=== PATIENT | female | born 1965 | race Caucasian/White ===

== ENCOUNTER → 2018-03-12 | Outpatient (CLI) | payer BC ==
--- NOTE | 2018-03-12 16:39 | XCELERA REPORT ---
[address] [address] Lower Extremity Arterial Evaluation Name: ARSH BAUMAN Age: 52 yrs Gender: Female : 1965 Patient Status: Outpatient Patient Location: Study Date: 03/12/2018 10:07 AM Procedure: A color flow and duplex scan of the lower extremity arteries was performed bilaterally with velocity and waveform anaylsis. Reason For Study: ULCER Ordering Physician: [facility] Performed By: Colette Quezada Measurements and Calculations Right Left Prox PFA PSV 53.1 117.6 cm/sec Prox SFA PSV 117.1 122.1 cm/sec Mid SFA PSV 96.3 96.3 cm/sec Dist SFA PSV 104.4 96.7 cm/sec Prox Pop A PSV 53.3 54.7 cm/sec Mid SARAY PSV 63.0 cm/sec Mid [employer]IAN PSV 87.3 57.7 cm/sec Right Side Arterial Evaluation Normal velocity and triphasic waveforms noted from the Common Femoral artery to the Popliteal artery. Biphasic with preserved velocities in the Posterior Tibial and the Dorsalis Pedis. The Anterior Tibial was not well visualized . 0-19% stenosis at the Infrageniculate level. Ankle Brachial index declined by the patient. Left Side Arterial Evaluation Normal velocity and triphasic waveforms noted from the Common Femoral artery to the infrageniculate vessels. 0 % stenosis noted. Ankle Brachial index was declined . Interpretation Summary Mild hemodynamically significant lesions in the right lower extremity only, on duplex imaging, at rest. No hemodynamically significant lesions in the left lower extremity only, on duplex imaging, at rest. : [facility] > [place] [address]
== END ==
LOC: SP 09:49
PROVIDERS: ATTEND Surgery
DX: L97.212 Non-pressure chronic ulcer of right calf with fat layer exposed (principal)
CPT/HCPCS: 93925; 93970